=== PATIENT | female | born 1940 | race Caucasian/White ===

== ENCOUNTER 2019-05-19 08:27 | Day surgery (SDC) | payer MEDICARE, OTHER ==
[~2019-05-19 08:27] MED LIST: AMLO5 PO; ASPI81CH PO; ATOR20; BENADRYL25 MG PO; LOSA50 PO; PROP80ER PO
--- NOTE | 2019-05-19 09:10 | NUR ---
Ambulatory in Day SurgeryPatient states colon prep results CLEAR UNTIL LAST STOOL HAD DEBRI. REPORTED TO DR WALDRON. NO NEW ORDERS. History, Chart, Medications and Allergies reviewed before start of procedure.Lungs clear T/O to Auscultation. Patient States Post-Procedure ride home has been arranged.
--- NOTE | 2019-05-19 10:02 | NUR ---
05/19/19 Lacey Potter History, Chart, Medications and Allergies reviewed before start of procedure. PATIENT CONFIRMS NPO STATUS AND AGREES WITH SCHEDULED PROCEDURE.MONITOR INTACT WITH CONTINUOUS PULSE OXIMETRY AND INTERMITTENT BP. O2 VIA N/C INTACT THROUGHOUT SEDATION/PROCEDURE. 3-LEAD EKG REVIEWED WITH PHYSICIAN PRIOR TO START OF PROCEDURE. PATIENT DETERMINED TO BE ASA APPROPRIATE FOR PROPOFOL SEDATION PRIOR TO START OF PROCEDURE BY DR. WALDRON.
--- NOTE | 2019-05-19 11:18 | NUR ---
Discharge instructions reviewed with patient. Patient verbalizes understanding. Copy given to patient to take home. Discharged via wheelchair to private car for ride home.
== END 2019-05-19 11:20 | disposition home or self-care (01) ==
LOC: ORSCMMR 08:27 → ORD 09:30 → ORSCMMR 09:30
PROVIDERS: Internal Medicine Gastroenterology
PROC: 0DJD8ZZ Inspection of Lower Intestinal Tract, Via Natural or Artificial Opening Endoscopic (ICD-10-PCS; principal; 2019-05-19 09:30)
DX: Z12.11 Encounter for screening for malignant neoplasm of colon (principal); Z86.010 Personal history of colon polyps; K55.20 Angiodysplasia of colon without hemorrhage; K57.30 Diverticulosis of large intestine without perforation or abscess without bleeding; I10 Essential (primary) hypertension; E78.00 Pure hypercholesterolemia, unspecified; Z79.82 Long term (current) use of aspirin; Z79.899 Other long term (current) drug therapy
CPT/HCPCS: J2704; J7120

== ENCOUNTER 2024-03-03 10:05 | Day surgery (SDC) | payer MEDICARE, OTHER ==
[~2024-03-03] VITALS: Ht 167.6 cm; Wt 45.8 kg
[~2024-03-03 10:05] MED LIST changes: +Balanced Salt Epinephrine Irrigation Solution 500 mL IR SCH; +Lidocaine HCl/Pf 1% 5 ML VIAL XX SCH; +Moxifloxacin HCL 0.5 MG/0.1 ML 0.4MLSYR RIGHTEYE SCH; +PHENYLEPHRINE\\TROPICAMIDE\\TETRACAINE OPHTHALMIC DILATING SOLN RIGHTEYE PRN; +Povidone-Iodine 450 DROP/30 ML Solution RIGHTEYE SCH
[2024-03-03] MEDS ORDERED: ATOR10 PO (11:04)
[2024-03-03] MEDS ORDERED: Midazolam HCl 1MG / ML 2ML Vial ONE (11:21)
[2024-03-03] MEDS ORDERED: Tetracaine HCl 0.5% Opth Soln 15 ml XX ONE (11:48)
[2024-03-03 12:09] VITALS: BP 144/69
== END 2024-03-03 12:17 | disposition home or self-care (01) ==
LOC: ORSCSDS 10:05
PROVIDERS: Student in an Organized Health Care Education/Training Program
PROC: 08RJ3JZ Replacement of Right Lens with Synthetic Substitute, Percutaneous Approach (ICD-10-PCS; principal; 2024-03-03 12:00)
DX: H25.813 Combined forms of age-related cataract, bilateral (principal); E03.9 Hypothyroidism, unspecified; I10 Essential (primary) hypertension; Z79.899 Other long term (current) drug therapy; Z85.3 Personal history of malignant neoplasm of breast
CPT/HCPCS: J2250; V2632

== ENCOUNTER 2024-03-09 10:08 | Day surgery (SDC) | payer MEDICARE, OTHER ==
[~2024-03-09] VITALS: Ht 167.6 cm; Wt 46.1 kg
[~2024-03-09 10:08] MED LIST changes: +ATOR10 PO; +Moxifloxacin HCL 0.5 MG/0.1 ML 0.4MLSYR LEFTEYE SCH; -Moxifloxacin HCL 0.5 MG/0.1 ML 0.4MLSYR RIGHTEYE SCH; +PHENYLEPHRINE\\TROPICAMIDE\\TETRACAINE OPHTHALMIC DILATING SOLN LEFTEYE PRN; -PHENYLEPHRINE\\TROPICAMIDE\\TETRACAINE OPHTHALMIC DILATING SOLN RIGHTEYE PRN; +Povidone-Iodine 450 DROP/30 ML Solution LEFTEYE SCH; -Povidone-Iodine 450 DROP/30 ML Solution RIGHTEYE SCH
[2024-03-09] MEDS ORDERED: Midazolam HCl 1MG / ML 2ML Vial ONE (11:35)
[2024-03-09] MEDS ORDERED: Tetracaine HCl 0.5% Opth Soln 15 ml XX ONE (11:39)
[2024-03-09 12:38] VITALS: BP 146/67
== END 2024-03-09 12:24 | disposition home or self-care (01) ==
LOC: ORSCSDS 10:08
PROVIDERS: Student in an Organized Health Care Education/Training Program
PROC: 08RK3JZ Replacement of Left Lens with Synthetic Substitute, Percutaneous Approach (ICD-10-PCS; principal; 2024-03-09 09:30)
DX: H25.812 Combined forms of age-related cataract, left eye (principal); Z96.1 Presence of intraocular lens; I10 Essential (primary) hypertension; Z79.82 Long term (current) use of aspirin; Z79.899 Other long term (current) drug therapy
CPT/HCPCS: J2250; V2632